=== PATIENT | male | born 1960 | race Caucasian/White ===

== ENCOUNTER → 2016-10-01 | Outpatient (CLI) | payer BC ==
[~2016-10-01] MED LIST: BNC/20125 PO; FLM4 PO; HYDR-5688 PO; MULTIVITAMINS PO; RANI150T3 PO; SIMV10TA5 PO; TRAM-10 PO; TRAMTAB5 PO; VARD20TA PO; ZINC1TAB PO
[2016-10-01 12:30] LABS: ALT/SGPT 50 U/L (12-78); AST/SGOT 22 U/L (15-37); BLOOD UREA NITROGEN 17 mg/dl (7-18); BUN/CREATININE RATIO 18.5 (10-20); CALCIUM 9.4 mg/dl (8.5-10.1); CARBON DIOXIDE 31 mmol/L (21-32); CHLORIDE 105 mmol/L (98-107); CREATININE 0.92 mg/dl (0.60-1.40); GLUCOSE 95 mg/dl (70-99); MAGNESIUM 2.2 mg/dl (1.8-2.4); POTASSIUM 4.4 mmol/L (3.5-5.1); SODIUM 139 mmol/L (136-145)
[2016-10-01 12:33] LABS: CHOLESTEROL 193 mg/dl (0-200); CHOLESTEROL/HDL RATIO 4.3; HDL CHOLESTEROL 45 mg/dl; LDL CHOLESTEROL CALCULATED 97 mg/dl; TRIGLYCERIDES 253 mg/dl (0-150); VERY LOW DENSITY LIPOPROT CALC 51 mg/dl
--- NOTE | 2016-10-06 09:24 | CODING QUERY MEDICAL NECESSITY ---
SUPPORTING DIAGNOSIS NEEDED A supporting diagnosis is required for the test/procedure performed on this patient in order for us to be reimbursed by the patient's insurance. Please provide a supporting diagnosis for the following test/procedure listed below next to the test name along with your signature. *If there is no additional diagnosis for this patient that would support the following test/procedure please document that below next to the test/procedure. Test(s)/Procedure(s) that require a supporting diagnosis: * VITAMIN D 25-HYDROXY DIAGNOSIS: * VITAMIN B-12 LEVEL DIAGNOSIS: * DOS: 10/01/16 Provider Signature: Date: Thank you Duyen Lees [facility] Information Management Once completed, please kindly fax back to [phone] For questions please call [phone]
== END | disposition home or self-care (01) ==
LOC: C.LABPVFM 09:42
PROVIDERS: ATTEND Family Medicine
DX: E78.5 Hyperlipidemia, unspecified (principal); I10 Essential (primary) hypertension; M79.1 Myalgia; M60.9 Myositis, unspecified

== ENCOUNTER → 2017-04-04 | Outpatient (CLI) | payer BC ==
[2017-04-04 12:47] LABS: BLOOD UREA NITROGEN 16 mg/dl (7-18); BUN/CREATININE RATIO 18.2 (10-20); CALCIUM 9.1 mg/dl (8.5-10.1); CARBON DIOXIDE 26 mmol/L (21-32); CHLORIDE 104 mmol/L (98-107); CREATININE 0.87 mg/dl (0.60-1.40); GLUCOSE 106 mg/dl (70-99); POTASSIUM 4.3 mmol/L (3.5-5.1); SODIUM 139 mmol/L (136-145)
[2017-04-04 12:50] LABS: CHOLESTEROL 185 mg/dl (0-200); CHOLESTEROL/HDL RATIO 3.3; HDL CHOLESTEROL 56 mg/dl; LDL CHOLESTEROL CALCULATED 103 mg/dl; TRIGLYCERIDES 130 mg/dl (0-150); VERY LOW DENSITY LIPOPROT CALC 26 mg/dl
== END | disposition home or self-care (01) ==
LOC: C.LABPVFM 07:59
PROVIDERS: ATTEND Family Medicine
DX: I10 Essential (primary) hypertension (principal); E78.5 Hyperlipidemia, unspecified

== ENCOUNTER → 2017-06-06 | Outpatient (CLI) | payer BC ==
--- NOTE | 2017-06-06 09:05 | DIAGNOSTIC IMAGING REPORT ---
KUB HISTORY: Follow-up study in a patient with bilateral nephrolithiasis URETERAL STONE COMPARISON: KUB 06/07/2016. FINDINGS: The bowel gas pattern is non-obstructive. There is no organomegaly. No renal calculi. No ureteral calculi. Renal shadows are partially obscured by bowel gas. There are phleboliths of the pelvis. No pneumoperitoneum or pneumatosis. No fracture. Degenerative changes involve the hips and lower lumbar spine. IMPRESSION: No renal or ureteral stones identified. Electronically signed by: Miller Noonan M.D. 06/06/2017 9:03 AM Dictated Date/Time: 06/06/2017 9:02 AM
== END | disposition home or self-care (01) ==
LOC: C.RAD 08:38
PROVIDERS: ATTEND Urology
DX: N20.0 Calculus of kidney (principal); N20.1 Calculus of ureter

== ENCOUNTER → 2017-09-22 | Outpatient (CLI) | payer OTHER ==
[2017-09-22 13:59] LABS: ALBUMIN 4.2 gm/dl (3.4-5.0); ALT/SGPT 36 U/L (12-78); AST/SGOT 19 U/L (15-37); BLOOD UREA NITROGEN 19 mg/dl (7-18); CALCIUM 9.4 mg/dl (8.5-10.1); CARBON DIOXIDE 27 mmol/L (21-32); CHOLESTEROL 145 mg/dl (0-200); CREATININE 0.89 mg/dl (0.60-1.40); GLUCOSE 106 mg/dl (70-99); POTASSIUM 4.5 mmol/L (3.5-5.1); SODIUM 138 mmol/L (136-145)
[2017-09-22 14:03] LABS: ALKALINE PHOSPHATASE 68 U/L (45-117); LDL CHOLESTEROL CALCULATED 75 mg/dl; TOTAL PROTEIN 7.3 gm/dl (6.4-8.2)
== END | disposition home or self-care (01) ==
LOC: C.LABPVFM 08:20
PROVIDERS: ATTEND Family Medicine
DX: I10 Essential (primary) hypertension (principal); E78.5 Hyperlipidemia, unspecified